=== PATIENT | female | born 1990 | race Caucasian/White ===

== ENCOUNTER 2022-07-16 20:45 | Emergency (ER) | payer MEDICAID ==
[~2022-07-16] VITALS: Ht 157.5 cm; Wt 81.6 kg
[2022-07-16 21:08] VITALS: BP_SYST 126
--- NOTE | 2022-07-16 21:08 | NUR ---
Patient to [facility] for evaluation.
--- NOTE | 2022-07-16 21:10 | NUR ---
PATIENT BROUGHT IN BY [facility] TO BOOK FOR LOW BLOOD SUGAR AND HISTORY OF DM. BS IN ED IS 106. NO ACUTE DISTRESS NOTED. VSS
--- NOTE | 2022-07-16 21:13 | NUR ---
ER IN [facility] examining patient.
[2022-07-16 21:20] VITALS: BP_SYST 126
--- NOTE | 2022-07-16 21:20 | NUR ---
Patient AND [facility]PART[facility] given written and verbal discharge instructions and verbalizes understanding. ER MD discussed with patient the results and treatment provided. Patient in stable condition. ID arm band removed. NO RX. Patient educated on pain management and to follow up with PMD. Pain Scale 0/10 Opportunity for questions provided and answered.
== END 2022-07-16 21:20 ==
LOC: SED 20:45
DX: Z02.89 Encounter for other administrative examinations (principal); E11.65 Type 2 diabetes mellitus with hyperglycemia; R73.9 Hyperglycemia, unspecified; Z88.0 Allergy status to penicillin; Z79.899 Other long term (current) drug therapy
CPT/HCPCS: 99283